=== PATIENT | female | born 1935 | race Caucasian/White ===

== ENCOUNTER → 2016-09-03 | Outpatient (CLI) | payer MEDICAID, OTHER ==
[~2016-09-03] MED LIST: AMLO1TAB15 PO; ASPI-1093 PO; CALC1TAB93 PO; CHL25 PO; CLOP75 PO; METO100T5 PO; NITR.4 SL; OMEP20 PO; PROP10DR4 OU; REGADENOSON 0.4 MG/5 ML PF SYRINGE IVP ONE; SESTAMIBI TC99M/UD ISOTOPE 1 EA INJ INJ ONE; SIMV80TA5 PO
[2016-09-03 08:40] VITALS: BP 134/48
[2016-09-03 09:29] VITALS: BP 129/55
== END | disposition home or self-care (01) ==
LOC: CARDMN 08:09
PROVIDERS: ATTEND Internal Medicine Cardiovascular Disease
DX: I25.9 Chronic ischemic heart disease, unspecified (principal); I50.1 Left ventricular failure, unspecified; R06.02 Shortness of breath
CPT/HCPCS: 78452; 93017; 93306; A9500; J2785

== ENCOUNTER 2017-01-03 11:51 | Day surgery (SDC) | payer MEDICAID, OTHER ==
[~2017-01-03] VITALS: Ht 149.9 cm; Wt 100.0 kg
[~2017-01-03 11:51] MED LIST changes: -CALC1TAB93 PO; -CHL25 PO; +CLON0.3T PO; +HYDR25TA PO; +ISOS60TA4 PO; -METO100T5 PO; -NITR.4 SL; +OSCD250 PO; -PROP10DR4 OU; -REGADENOSON 0.4 MG/5 ML PF SYRINGE IVP ONE; -SESTAMIBI TC99M/UD ISOTOPE 1 EA INJ INJ ONE
[2017-01-03] MEDS ORDERED: METOCLOPRAMIDE HCL 5 MG/ML 2 ML VIAL IVP ONE (11:52)
[2017-01-03] MEDS ORDERED: PROPOFOL 1% 20 ML VIAL IVP ONE (11:52)
[2017-01-03] MEDS ORDERED: LIDOCAINE HCL/PF 2% 5 ML VIAL IM ONE (11:52)
[2017-01-03] MEDS ORDERED: SODIUM CHLORIDE 0.9% 1,000 ML IV ONE ×2 (11:52→12:00)
[2017-01-03] MEDS ORDERED: PANT40TA25 PO (12:03)
[2017-01-03] MEDS ORDERED: METO50 PO (12:05)
[2017-01-03] MEDS ORDERED: GLIP5 PO (12:05)
[2017-01-03 12:47] LABS: GLUCOSE,POINT OF CARE 95 MG/DL (70-110)
[2017-01-03] MEDS ORDERED: OXYGEN THERAPY IH SCH (20:00)
== END 2017-01-03 15:35 | disposition home or self-care (01) ==
LOC: SURGERY 11:51
PROVIDERS: ATTEND Internal Medicine Gastroenterology
DX: K64.8 Other hemorrhoids (principal); K62.1 Rectal polyp; Z90.710 Acquired absence of both cervix and uterus; Z88.0 Allergy status to penicillin
CPT/HCPCS: 45385; 82962; 88305; 93005 ×2; C1769; J2704; J2765; J3490; J7030

== ENCOUNTER 2017-02-12 07:09 | Day surgery (SDC) | payer MEDICAID, OTHER ==
[~2017-02-12] VITALS: Ht 149.9 cm; Wt 100.5 kg
[~2017-02-12 07:09] MED LIST changes: +ACETAMINOPHEN 325 MG TABLET PO PRN; -ASPI-1093 PO; +ASPI-1182 PO; -CLOP75 PO; +GLIP5 PO; +METO50 PO; +PANT40TA25 PO; +RINGERS SOLUTION,LACTATED 500 ML IV ONE
[2017-02-12] MEDS ORDERED: POVIDONE-IODINE 10% 15 ML SOLUTION UD TP ONE (07:10)
[2017-02-12] MEDS ORDERED: LIDOCAINE HCL/PF 1% 2 ML VIAL IM ONE (07:10)
[2017-02-12] MEDS ORDERED: MIDAZOLAM HCL 2 MG/2 ML VIAL IVP ONE (07:10)
[2017-02-12] MEDS ORDERED: HYALURONATE SODIUM 12 MG/ML 0.8 ML SYRINGE IO ONE (07:10)
[2017-02-12] MEDS ORDERED: PILOCARPINE HCL 4% 15 ML OPHTHALMIC SOLUTION OS ONE (07:10)
[2017-02-12] MEDS ORDERED: EPINEPHrine 1:1,000 [1 MG/ML] AMP IM ONE (07:10)
[2017-02-12] MEDS ORDERED: PANT20TA12 PO (07:47)
[2017-02-12] MEDS ORDERED: METO100T14 PO (07:47)
[2017-02-12] MEDS ORDERED: ASPI81TA39 PO (07:47)
[2017-02-12] MEDS ORDERED: HYDR25TA PO (07:47)
[2017-02-12] MEDS ORDERED: OSCD250 PO (07:47)
[2017-02-12] MEDS ORDERED: ISOS60TA4 PO (07:55)
[2017-02-12] MEDS ORDERED: CLOP75TA32 PO (07:55)
[2017-02-12] MEDS ORDERED: SIMV20TA6 PO (07:55)
[2017-02-12] MEDS ORDERED: AMLO-352 PO (07:55)
[2017-02-12] MEDS ORDERED: CLON.3 PO (07:55)
[2017-02-12] MEDS ORDERED: DICLOFENAC SODIUM 0.1% 2.5 ML OPHTHALMIC SOLUTION ONE (07:57)
[2017-02-12] MEDS ORDERED: CYCLOPENTOLATE HCL 2% 2 ML OPHTHALMIC SOLUTION ONE (07:57)
[2017-02-12] MEDS ORDERED: TETRACAINE HCL/PF 0.5% 4 ML OPHTHALMIC SOLUTION ONE (07:57)
[2017-02-12] MEDS ORDERED: PHENYLEPHRINE HCL 2.5% 2 ML OPHTHALMIC SOLUTION ONE (07:57)
[2017-02-12] MEDS ORDERED: MOXIFLOXACIN HCL 0.5% 3 ML OPHTHALMIC SOLUTION ONE (07:57)
[2017-02-12] MEDS ORDERED: RINGERS SOLUTION,LACTATED 500 ML IV ONE (07:57)
[2017-02-12] MEDS: PHENYLEPHRINE HCL 2.5% 2 ML OPHTHALMIC SOLUTION OS SCH ×3 (08:06→08:19)
[2017-02-12] MEDS: MOXIFLOXACIN HCL 0.5% 3 ML OPHTHALMIC SOLUTION OS SCH ×3 (08:06→08:19)
[2017-02-12] MEDS: TETRACAINE HCL/PF 0.5% 4 ML OPHTHALMIC SOLUTION OS SCH ×3 (08:06→08:18)
[2017-02-12] MEDS: CYCLOPENTOLATE HCL 2% 2 ML OPHTHALMIC SOLUTION OS SCH ×3 (08:06→08:18)
[2017-02-12] MEDS: DICLOFENAC SODIUM 0.1% 2.5 ML OPHTHALMIC SOLUTION OS SCH ×2 (08:13→08:19)
[2017-02-12] MEDS ORDERED: FentaNYL CITRATE-PF 100 MCG/2 ML VIAL IVP ONE (12:00)
== END 2017-02-12 09:55 | disposition home or self-care (01) ==
LOC: SURGERY 07:09
PROVIDERS: ATTEND Ophthalmology
DX: E11.36 Type 2 diabetes mellitus with diabetic cataract (principal); E66.01 Morbid (severe) obesity due to excess calories; I10 Essential (primary) hypertension; I25.10 Atherosclerotic heart disease of native coronary artery without angina pectoris; Z88.0 Allergy status to penicillin; Z68.41 Body mass index [BMI] 40.0-44.9, adult
CPT/HCPCS: 66984; 93005; C1780; J0171; J2250; J3010; J3490 ×2; J7120